=== PATIENT | female | born 1985 | race Caucasian/White ===

== ENCOUNTER 2017-06-27 09:31 | Day surgery (SDC) | payer BC ==
--- NOTE | 2017-06-25 15:38 | HISTORY & PHYSICAL EXAMINATION ---
DATE OF ADMISSION: 06/25/2017 REASON FOR ADMISSION: Missed . HISTORY OF PRESENT ILLNESS: The patient is a 31-year-old female para 1-0-1-1 currently 6 weeks with a missed . The patient had an ultrasound which revealed no heart tones. The patient was given informed consent including the risks, benefits, alternatives of surgery versus expectant management. The patient chose to have surgery. D&E will be scheduled. PAST MEDICAL HISTORY: Positive for asthma. No medications currently. PAST SURGICAL HISTORY: Repair of knee, dental surgery and eardrum surgery. SOCIAL HISTORY: Denies smoking, alcohol or drug use. MEDICATIONS: vitamins. ALLERGIES: No known allergies. FAMILY HISTORY: Noncontributory. REVIEW OF SYSTEMS: Negative. PHYSICAL EXAMINATION: HEENT: Within normal limits. LUNGS: Clear to auscultation. COR: Regular rate and rhythm. ABDOMEN: Soft, nontender, gravid to 6 weeks. VITAL SIGNS: Blood pressure 100/60. Last menstrual period 04/28/2017. The patient is A positive. ASSESSMENT: Missed . PLAN: D&E in the OR.
[2017-06-26 08:01] VITALS: BMI 21.0
[~2017-06-27] VITALS: Ht 165.1 cm; Wt 58.0 kg
--- NOTE | 2017-06-27 09:05 | History & Physical Bridge Note ---
H&P Re-Evaluation Bridge Note: I have examined the patient, reviewed the History & Physical and in the interval since the performance of the History & Physical I have noted the following changes of clinical significance: No changes noted
[~2017-06-27 09:31] MED LIST: LACTATED RINGER'S 1000ML 1,000 ML IV SCH; PRENTAB26 PO
[2017-06-27 09:56] VITALS: BP 129/71; PULSE 98; TEMP 36.8; O2SAT 99; Ht 165.1 cm; Wt 58.0 kg
[2017-06-27] MEDS ORDERED: SILVER NITR/POTASSIUM NITRATE APPLICATOR ONE (11:00)
[2017-06-27] MEDS ORDERED: MIDAZOLAM HCL 1 MG/ML 2ML VIAL ONE (11:16)
[2017-06-27] MEDS ORDERED: FENTANYL CITRATE INJ 50 MCG/1 ML 2 ML VIAL ONE (11:16)
[2017-06-27] MEDS ORDERED: KETOROLAC TROMETHAMINE 30 MG/ML VIAL IV. PRN ×2 (11:45→12:45)
[2017-06-27] MEDS ORDERED: ONDANSETRON INJ 2 MG/ML 2 ML VIAL IV PRN ×2 (11:45→12:45)
[2017-06-27] MEDS ORDERED: FENTANYL CITRATE INJ 50 MCG/1 ML 2 ML VIAL IV PRN (11:45)
[2017-06-27] MEDS ORDERED: ATROPINE SULFATE 0.1 MG/ML 5ML SYR IV PRN (11:45)
[2017-06-27] MEDS ORDERED: SODIUM CHLORIDE 0.9% 1000ML 1,000 ML IV SCH (12:38)
[2017-06-27] MEDS ORDERED: LIDOCAINE HCL 2% 2 ML VIAL (20MG/ML) ONE (12:41)
[2017-06-27] MEDS ORDERED: MTR600X PO (12:41)
[2017-06-27] MEDS ORDERED: PROPOFOL IV EMULSION 10 MG/ML 20 ML VIAL IV ONE (12:41)
[2017-06-27] MEDS ORDERED: METOCLOPRAMIDE HCL INJ 5 MG/ML 2 ML VIAL ONE (12:41)
[2017-06-27] MEDS ORDERED: ONDANSETRON INJ 2 MG/ML 2 ML VIAL ONE (12:41)
--- NOTE | 2017-06-27 12:41 | [facility] Post Operative Brief Note ---
Immediate Operative Summary Operative Date Jun 27, 2017. Pre-Operative Diagnosis missed Post-Operative Diagnosis same Procedure(s) Performed D&E Surgeon Alysha Military Technician Surgeon(s) none Estimated Blood Loss 5 ml. Findings products of conception Specimens products of conception Drains none Anesthesia MAC Complication(s) None Disposition Recovery Room / PACU
--- NOTE | 2017-06-27 12:43 | Discharge Instructions ---
Discharge Instructions Date of Service Jun 27, 2017. Admission Reason for Admission: Missed Discharge Discharge Diagnosis / Problem: missed 6 weeks Discharge Goals Goal(s): Routine recovery after surgery Activity Recommendations Activity Limitations: as noted below Lifting Limitations: no more than 10 pounds Exercise/Sports Limitations: gradually increase as tolerated May Resume Sexual Activity: after follow-up appointment Shower/Bathe: no limitations Driving or Machine Use: resume 1 day after discharge . Instructions / Follow-Up Instructions / Follow-Up ACTIVITY RECOMMENDATIONS: * Avoid tampons, douching, hot tubs, pools, and intercourse until bleeding has stopped. * May shower as usual. * No strenuous activity for 24-48 hours. After 24-48 hours, you may do anything you feel like doing (driving and sports are okay). SPECIAL CARE INSTRUCTIONS: Special Diet: * Mild nausea may occur in the immediate post-operative period. * Take clear liquids such as tea, cola or bouillon until all nausea has subsided; you may then resume your normal diet. Special Care: * Light bleeding and vaginal spotting can last from a few days to 3-4 weeks. Call your doctor if bleeding becomes heavier than the heaviest part of your period. * Check your temperature twice a day for one week. If it goes above 100.4 degrees Fahrenheit (38.0 Celsius), notify your doctor. * Call your doctor's office for an appointment for 6 weeks after your surgery. FOLLOW-UP VISIT: Call your doctor's office for an appointment for 6 weeks after your surgery. Current Hospital Diet Patient's current hospital diet: Discharge Diet Recommended Diet: Regular Diet Fluid Restriction: None Procedures Procedures Performed: D&E Pending Studies Studies pending at discharge: no Medical Emergencies . Who to Call and When: Medical Emergencies: If at any time you feel your situation is an emergency, please call 911 immediately. . Non-Emergent Contact Non-Emergency issues call your: Primary Care Provider . . "Provider Documentation" section prepared by Tera Encarnacion. . VTE Core Measure Inpt VTE Proph given/why not?: Treatment not indicated
[2017-06-27] MEDS ORDERED: OXYCODONE/ACETAMINOPHEN 5-325 TAB PO PRN (12:45)
[2017-06-27] MEDS ORDERED: IBUPROFEN 600 MG TAB PO PRN (12:45)
[2017-06-27] MEDS ORDERED: MoRPHine SULFATE 2 MG/ML CARP IV PRN (12:45)
--- NOTE | 2017-06-27 13:16 | OPERATIVE REPORT ---
DATE OF OPERATION: 06/27/2017 PREOPERATIVE DIAGNOSIS: Missed at 6 weeks. POSTOPERATIVE DIAGNOSIS: Same. PROCEDURE: D&E. SURGEON: Tera Encarnacion MD. ADULT CROSSING GUARD: None. ANESTHESIA: MAC. ESTIMATED BLOOD LOSS: 5 mL. COMPLICATIONS: None. FINDINGS: Products of conception. The patient is A positive. CLINICAL HISTORY: The patient is a 31-year-old female para 1-0-0-1 at 6 weeks, A positive presents to the office with no heart tones. On ultrasound a missed AB was diagnosed. The patient was consented for a D&E in the OR. DESCRIPTION OF PROCEDURE: After satisfactory MAC anesthesia, the patient was prepped and draped in usual sterile fashion. Catheter was used to empty the bladder approximately 100 mL of clear urine. Exam under anesthesia revealed the uterus to be approximately 6-8 weeks size with no abnormalities. Weighted speculum was then placed in the posterior vault of the vagina. Single tooth tenaculum was then placed on the cervix anteriorly. The cervix was sounded to approximately 7 cm. Hegar dilators were then used to dilate the cervix and then a #8 curved curette was then introduced curetting out products of conception. Sharp endometrial curet was then used curetting minimal amounts of tissue. No active bleeding was noted. At the end of the procedure, Pitocin was started in the IV. The patient was A positive. She did not receive RhoGAM. At the end of the procedure, all remaining instruments were then removed. The patient was then placed supine on a stretcher and then taken to recovery room in stable condition to be discharged as an outpatient. FINAL DISCHARGE DIAGNOSIS: Missed . I attest to the content of the Intraoperative Record and any orders documented therein. Any exception s are noted below.
[2017-06-27 13:30] VITALS: BP 96/59; PULSE 84; TEMP 36.8; O2SAT 100
[2017-06-27 14:00] VITALS: BP 99/57; PULSE 80; TEMP 37; O2SAT 99
--- NOTE | 2017-06-27 14:24 | Anesthesiology Progress Note ---
Anesthesia Post Op Note Date & Time Jun 27, 2017 at 14:23 Vital Signs Pain Intensity: 0.5 Vital Signs Past 12 Hours Date Time Temp Pulse Resp B/P (MAP) Pulse Ox O2 Delivery O2 Flow Rate FiO2 06/27/17 13:30 36.8 84 16 96/59 100 Room Air 06/27/17 13:22 37.1 06/27/17 13:21 73 22 06/27/17 13:21 74 22 98/54 99 06/27/17 13:16 78 19 101/65 100 06/27/17 13:16 79 19 06/27/17 13:15 86 28 06/27/17 13:15 87 28 97 06/27/17 13:11 97/63 06/27/17 13:10 74 15 97 06/27/17 13:10 76 15 06/27/17 13:06 99/57 06/27/17 13:05 80 18 06/27/17 13:05 80 18 100 06/27/17 13:01 90/60 06/27/17 13:00 83 22 100 06/27/17 13:00 83 22 06/27/17 12:56 99/60 06/27/17 12:55 81 23 100 06/27/17 12:55 80 23 06/27/17 12:51 93/59 06/27/17 12:50 77 19 06/27/17 12:50 78 19 100 06/27/17 12:46 99/60 06/27/17 12:45 37.2 91 18 99/60 100 Room Air 06/27/17 12:45 92 21 06/27/17 12:45 92 21 97 06/27/17 09:56 36.8 98 16 129/71 (90) 99 Room Air Notes Mental Status: alert / awake / arousable, participated in evaluation Pt Amnestic to Procedure: Yes Nausea / Vomiting: adequately controlled Pain: adequately controlled Airway Patency, RR, SpO2: stable & adequate BP & HR: stable & adequate Hydration State: stable & adequate Anesthetic Complications: no major complications apparent
[2017-06-27 14:30] VITALS: BP 91/55; PULSE 78; TEMP 36.6; O2SAT 97
== END 2017-06-27 14:52 | disposition home or self-care (01) ==
LOC: C.ACU 09:31
PROVIDERS: ATTEND Obstetrics & Gynecology
DX: O02.1 Missed abortion (principal); J45.909 Unspecified asthma, uncomplicated; Z98.890 Other specified postprocedural states

== ENCOUNTER 2021-04-25 15:32 | Inpatient (IN) ==
[2021-04-25] MEDS ORDERED: LACTATED RINGER'S 1,000 ML IV SCH ×2 (16:15→19:45)
--- NOTE | 2021-04-25 16:27 | History & Physical Bridge Note ---
Date of Service April 25, 2021 History & Physical Bridge Note I have examined the patient, reviewed the History & Physical and in the interval since the performance of the History & Physical I have noted the following changes of clinical significance: no changes noted
[2021-04-25] MEDS ORDERED: ceFAZolin 2000MG 2,000 MG/15 ML SYR IV SCH (16:30)
[2021-04-25] MEDS ORDERED: CITRIC ACID/SODIUM CITRATE 15 ML UDC PO SCH (16:30)
[2021-04-25 16:44] LABS: Basophils # (auto) 0.01 K/uL (0-0.2); Basophils % (auto) 0.1 %; Eosinophils # (auto) 0.05 K/uL (0-0.5); Eosinophils % (auto) 0.5 %; Hematocrit (blood only) 35.9 % (37-47); Hemoglobin 12.4 g/dL (12.0-16.0); Immature Granulocytes # (auto) 0.01 K/uL (0.00-0.02); Immature Granulocytes % (auto) 0.1 %; Lymphocytes % (auto) 14.4 %; Mean Corpuscular Hemoglobin 33.5 pg (25-34); Mean Corpuscular Hgb Conc 34.5 g/dL (32-36); Mean Platelet Volume 10.2 fL (7.4-10.4); Monocytes # (auto) 0.71 K/uL (0.11-0.59); Monocytes % (auto) 7.3 %; Neutrophils # (auto) 7.57 K/uL (1.4-6.5); Neutrophils % (auto) 77.6 %; Platelet Count 127 K/uL (130-400); RDW Coefficient of Variation 12.6 % (11.5-14.5); RDW Standard Deviation 44.4 fL (36.4-46.3); White Blood Count 9.75 K/uL (4.8-10.8)
[2021-04-25] MEDS: LACTATED RINGER'S 1,000 ML IV SCH (17:03)
[2021-04-25] MEDS ORDERED: OXYTOCIN 10 UNITS/ML VIAL ONE ×3 (17:09→18:44)
[2021-04-25] MEDS ORDERED: MoRPHine SULFATE PF 1 MG/ML 10 ML AMP/VIAL ONE (17:09)
[2021-04-25] MEDS ORDERED: fentaNYL citrate 100 MCG/2 ML VIAL ONE (17:09)
--- NOTE | 2021-04-25 17:37 | Anesthesiology Consultation ---
Date of Service April 25, 2021 Assessment & Plan Chart Review Chart Review: Acceptable Risk for Surgery and Patient NOT seen in Pre Admission Testing Consults Requested none ASA ASA2 Proposed Anesthesia Anesthesia Type: MAC Spinal Risk / Benefits Reviewed With: PT / POA / Parent / Guardian, Accepts Plan and Informed Consent Obtained History Height/Weight Height: 5 ft 5 in Weight: 65.41 kg Allergies Allergy/AdvReac Type Severity Reaction Status Date / Time No Known Allergies Allergy Unverified 04/22/21 08:17 Medications Home Medications Medication Instructions Recorded Confirmed Last Taken owdremcr-[id number]-Ty-[id number] 1 mg 1 tab PO QAM 04/22/21 04/25/21 04/25/21 08:00 tablet Active Medications Generic Name Dose Route Start Last Admin Trade Name Freq PRN Reason Stop Dose Admin Lactated Ringer's 1,000 mls @ 125 mls/hr 04/25/21 17:15 04/25/21 17:03 Lr IV 05/25/21 17:14 125 mls/hr .Q8H SLICK Administration NPO Date Last Intake of Fluids: 04/25/21 Time Last Intake of Fluids: 12:00 Date Last Intake of Solids: 04/25/21 Time Last Intake of Solids: 11:30 Last Intake of Solids Comment: sandwich Past Medical History Medical History Gestational diabetes Exercise / Class Metabolic Activity II 4-5 Yardwork/Stairs/Walk up hill Past Surgical History Surgical History Hx of section Hx of dilation and curettage Hx of wisdom tooth extraction S/P ACL repair right knee Past Anesthesia History No Hx of Anesthesia Complications and No Family Hx of Anesthesia Complications History of PONV No Hx of PONV and No Hx of Motion Sickness Social History Smoking Status: Never smoker Hx Alcohol Use: No Hx Substance Use: No substance use type: does not use Review of Systems no chest pain or sob Physical Exam Vital Signs Last Vital Signs Temp 36.9 C 04/25/21 15:53 Pulse 88 04/25/21 15:52 Resp 19 04/25/21 15:53 BP 112/77 04/25/21 15:52 ENMT Mouth: no TMJ abnormality Thyromental Distance: > or= 3.5 Finger Breadths Mallampati Class: II Neck normal visual inspection Respiratory normal respiratory effort Auscultation: lungs clear to auscultation bilaterally Cardiovascular Rate/Rhythm: regular rate and regular rhythm Musculoskeletal Spine: normal cervical ROM Neurologic moves all extremities Psychiatric Orientation: alert and oriented x 3 Testing Laboratory Results 04/25/21 16:30 Blood Type A Positive 04/25/21 16:30 Antibody Screen NEGATIVE 04/25/21 16:30 04/25/21 16:34 POC Glucose 76
[2021-04-25] MEDS ORDERED: LACTATED RINGER'S 500 ML IV PRN (17:38)
[2021-04-25] MEDS ORDERED: ONDANSETRON INJ 2 MG/ML 2 ML VIAL IV PRN ×2 (17:38→19:42)
[2021-04-25] MEDS ORDERED: NALOXONE HCL 0.4 MG/1 ML VIAL/CARP IV PRN (17:38)
[2021-04-25] MEDS ORDERED: HYDROmorphone INJ 0.5 MG/0.5 ML SYR IV PRN (17:38)
[2021-04-25] MEDS ORDERED: NALOXONE HCL 0.08 MG in SYRINGE 1.8 ML IV PRN (17:38)
[2021-04-25] MEDS ORDERED: diphenhydrAMINE 50 MG/ML VIAL IV PRN (17:38)
[2021-04-25] MEDS ORDERED: MoRPHine SULFATE PF 1 MG/ML 10 ML AMP/VIAL INT SPINAL ONE (17:38)
[2021-04-25] MEDS ORDERED: NALOXONE HCL 1 MG in SODIUM CHLORIDE 0.9% 1000ML 1,000 ML IV PRN (17:38)
[2021-04-25] MEDS ORDERED: ePHEDrine sulfate 50 MG/ML AMP IV PRN (17:38)
[2021-04-25] MEDS ORDERED: NALBUPHINE HCL INJ 10 MG/ML AMP IV PRN (17:38)
[2021-04-25] MEDS ORDERED: SODIUM CHLORIDE 0.9% 1000ML 1,000 ML IV SCH (17:45)
[2021-04-25] MEDS ORDERED: DC INTRASPINAL MORPHINE SCH (17:45)
[2021-04-25] MEDS ORDERED: NO NARCOTICS OR SEDATIVES SCH (17:45)
[2021-04-25] MEDS ORDERED: PHENYLEPHRINE 100MCG/ML 5ML SYR ONE (17:54)
[2021-04-25] MEDS ORDERED: OXYTOCIN 10 UNITS/ML VIAL IM ONE (18:48)
[2021-04-25] MEDS ORDERED: miSOPROStoL 200 MCG TAB ONE (18:56)
[2021-04-25] MEDS ORDERED: ONDANSETRON INJ 2 MG/ML 2 ML VIAL ONE (18:58)
[2021-04-25] MEDS ORDERED: miSOPROStoL 200 MCG TAB PR ONE (18:58)
--- NOTE | 2021-04-25 19:23 | Anesthesiology Progress Note ---
Date of Service April 25, 2021 Anesthesia Post Procedure Vital Signs Vital Signs: Temp Pulse Resp BP Pulse Ox 04/25/21 19:20 68 115/70 04/25/21 19:18 66 93 04/25/21 19:13 63 100 04/25/21 19:08 67 109/71 98 04/25/21 15:53 36.9 C 19 04/25/21 15:52 88 112/77 04/25/21 15:49 36.9 C 19 Transfer of Care Handoff Completed per policy Notes Mental Status: alert / awake / arousable Patient Amnestic to Procedure: Yes Nausea / Vomiting: adequately controlled Pain: adequately controlled Airway Patency, RR, SpO2: stable & adequate BP & HR: stable & adequate Hydration State: stable & adequate Neuraxial Anesthesia: was administered and sensory block is resolving Anesthetic Complications: no major complications apparent and Pt Satisfied with anesthetic care
[2021-04-25] MEDS ORDERED: BENZOCAINE 20% AER SPR 82.5 GM CAN EXT PRN (19:42)
[2021-04-25] MEDS ORDERED: MAGNESIUM HYDROXIDE SUSP 30 ML UDC PO PRN (19:42)
[2021-04-25] MEDS ORDERED: PROMETHAZINE HCL 25 MG in SODIUM CHLORIDE 0.9% 50 ML IV PRN (19:42)
[2021-04-25] MEDS ORDERED: SUPERCREAM 0.870% 15 GM JAR EXT PRN (19:42)
[2021-04-25] MEDS ORDERED: DIPHTHERIA/TETANUS/PERTUSSIS 0.5 ML SYR/VIAL IM ONE (19:42)
[2021-04-25] MEDS ORDERED: SENNA 8.6 MG TAB PO PRN (19:42)
[2021-04-25] MEDS ORDERED: HYDROCORTISONE ACETATE 25 MG SUPP PR PRN (19:42)
--- NOTE | 2021-04-25 19:42 | Post Operative Brief Note ---
Immediate Post Op Note v1 Date of Surgery April 25, 2021 Pre & Post Diagnosis Operation Date: 04/25/21 17:30 Pre-Op Diagnosis: Repeat section, desires tubal ligation. Post-Op Diagnosis: Repeat section, desires tubal ligation. I identified the patient and participated in the time-out.: Yes Procedure Operation Date: 04/25/21 17:30 Actual Procedures p Section in LD(Bilateral) - Marvel Santiago MD Surgeon Marvel Santiago MD Oil Pumper dr castrejon Estimated Blood Loss 450 Findings Consistent with Post-Op Diagnosis
[2021-04-25] MEDS ORDERED: OXYTOCIN 20 UNITS in LACTATED RINGER'S 1,000 ML IV SCH (20:45)
--- NOTE | 2021-04-25 22:20 | Operative Report (OR) ---
DATE OF PROCEDURE: 04/25/2021. INDICATIONS FOR SURGERY: This is a 35-year-old G5, P2, prior section, at term, wis hes to have repeat and permanent sterilization. PREOPERATIVE DIAGNOSES: 1. at term, previous section, wishes to have repeat . 2. Undesired fertility, wishes to have permanent sterilization. POSTOPERATIVE DIAGNOSES: 1. at term, previous section, wishes to have repeat . 2. Undesired fertility, wishes to have permanent sterilization. PROCEDURE: Repeat section and bilateral tubal ligation. SURGEON: Marvel Santiago MD SAP INTEGRATION ARCHITECT: Tera Encarnacion MD ANESTHESIA: Spinal. ATTENDING FOR ANESTHESIA: Dr. Bates. ESTIMATED BLOOD LOSS: 450 mL. INTRAVENOUS FLUIDS: 2 liters. URINE OUTPUT: 500 mL of clear urine at the end of the procedure. FINDINGS: Normal uterus, tubes, and adnexa. Abdominopelvic exam is unremarkable. Live infant delive red via section. COMPLICATIONS: None. DRAIN: Kelley catheter. PATHOLOGY: Placenta. INTRAOPERATIVE COMPLICATIONS: None. DESCRIPTION OF PROCEDURE: The patient was taken to the Operating Room where she was prepped and drap ed in normal sterile fashion in dorsal lithotomy position. Timeout was called. A Pfannenstiel incis ion was made through the old scar and carried down to the fascia. Fascia was incised in the midline and extended laterally on both sides. Rectus abdominis muscle was sharply dissected off the fascia. Peritoneum was identified and abdomen was entered sharply. Once inside the abdomen, an Ryan retra ctor was placed for retraction. Vesicouterine peritoneum was sharply dissected over the lower segmen t of the uterus. A transverse incision was made on the lower segment of the uterus and extended late rally on both sides using bandage scissors. Amniotomy was performed. The infant was delivered, mout h was suctioned, cord was clamped and cut and handed over to the pediatric team. Details of the infa nt's information is in the pediatric record. Cord blood was obtained. Placenta was manually removed . Uterus was exteriorized and cleared of all clots and debris. Uterus was closed in 2 layers using Vicryl stitch. There was good hemostasis. Copious amount of irrigation was used to irrigate the abd omen. Uterus was returned to the abdominal cavity once good hemostasis was confirmed. The fascia wa s closed in a running fashion using Vicryl stitch. Copious amount of irrigation was used to irrigate the abdomen. Subcutaneous space was closed with plain suture. Skin was closed with 4-0 Monocryl. All instruments were removed from the abdomen including retractors, needles, and sponges and accounte d for x2. The patient was sent to recovery in stable condition. Job ID: [id number]
[2021-04-26] MEDS: KETOROLAC 30 MG/ML VIAL IV PRN ×2 (00:57→10:47)
[2021-04-26] MEDS: SIMETHICONE 80 MG CHEW PO SCH ×5 (03:24→20:33)
[2021-04-26] MEDS: DOCUSATE SODIUM 100 MG CAP PO SCH ×3 (03:24→20:34)
[2021-04-26] MEDS: LACTATED RINGER'S 1,000 ML IV SCH (04:45)
[2021-04-26 06:46] LABS: Basophils # (auto) 0.01 K/uL (0-0.2); Basophils % (auto) 0.1 %; Eosinophils # (auto) 0.04 K/uL (0-0.5); Eosinophils % (auto) 0.3 %; Hematocrit (blood only) 34.4 % (37-47); Hemoglobin 11.9 g/dL (12.0-16.0); Immature Granulocytes # (auto) 0.02 K/uL (0.00-0.02); Immature Granulocytes % (auto) 0.1 %; Lymphocytes # (auto) 1.38 K/uL (1.2-3.4); Lymphocytes % (auto) 9.8 %; Mean Corpuscular Hemoglobin 32.8 pg (25-34); Mean Corpuscular Hgb Conc 34.6 g/dL (32-36); Mean Corpuscular Volume 94.8 fL (80-100); Mean Platelet Volume 9.9 fL (7.4-10.4); Monocytes # (auto) 1.12 K/uL (0.11-0.59); Neutrophils # (auto) 11.46 K/uL (1.4-6.5); Neutrophils % (auto) 81.7 %; Platelet Count 109 K/uL (130-400); RDW Coefficient of Variation 12.4 % (11.5-14.5); RDW Standard Deviation 42.6 fL (36.4-46.3); Red Blood Count 3.63 M/uL (4.2-5.4); White Blood Count 14.03 K/uL (4.8-10.8)
[2021-04-26] MEDS: PRENATAL VITAMIN 1 TAB PO SCH (07:49)
[2021-04-26] MEDS: FERROUS SULFATE 325 MG TAB PO SCH (07:49)
--- NOTE | 2021-04-26 09:13 | Obstetrical Progress Note ---
Date of Service April 26, 2021 Physical Exam Constitutional WD/WN, vitals as above comfortable Skin incision c/d/i abdomen slightly distended fundus firm no edema neg Tati's will increase diet/activity Results & Data ([facility]) Vital Signs (Past 12 Hours) Vital Signs Temp Pulse Pulse Pulse Resp BP Pulse Ox 04/26/21 07:40 36.7 C 77 21 103/67 99 04/26/21 06:01 18 95 04/26/21 05:00 18 96 04/26/21 04:04 36.4 C L 84 18 111/66 98 04/26/21 03:00 18 97 04/26/21 02:00 16 97 04/26/21 01:00 20 99 04/26/21 00:00 18 97 04/25/21 23:00 20 97 04/25/21 22:30 18 116/64 97 04/25/21 22:00 18 97 04/25/21 21:30 36.5 C 65 18 117/76 99 04/25/21 21:23 74 95 04/25/21 21:22 68 87 L 04/25/21 21:18 69 96 04/25/21 21:13 78 99 Laboratory Results Laboratory Results - last 72 hr 04/25/21 04/25/21 04/25/21 16:30 16:30 16:34 WBC 9.75 RBC 3.70 L Hgb 12.4 Hct 35.9 L MCV 97.0 MCH 33.5 MCHC 34.5 RDW Std Deviation 44.4 RDW Coeff of Boby 12.6 Plt Count 127 L MPV 10.2 Immature Gran % (Auto) 0.1 Neut % (Auto) 77.6 Lymph % (Auto) 14.4 [place] % (Auto) 7.3 Eos % (Auto) 0.5 Baso % (Auto) 0.1 Neut # (Auto) 7.57 H Lymph # (Auto) 1.40 [place] # (Auto) 0.71 H Eos # (Auto) 0.05 Baso # (Auto) 0.01 Immature Gran # (Auto) 0.01 POC Glucose 76 Blood Type A Positive Antibody Screen NEGATIVE 04/26/21 06:28 WBC 14.03 H RBC 3.63 L Hgb 11.9 L Hct 34.4 L MCV 94.8 MCH 32.8 MCHC 34.6 RDW Std Deviation 42.6 RDW Coeff of Boby 12.4 Plt Count 109 L MPV 9.9 Immature Gran % (Auto) 0.1 Neut % (Auto) 81.7 Lymph % (Auto) 9.8 [place] % (Auto) 8.0 Eos % (Auto) 0.3 Baso % (Auto) 0.1 Neut # (Auto) 11.46 H Lymph # (Auto) 1.38 [place] # (Auto) 1.12 H Eos # (Auto) 0.04 Baso # (Auto) 0.01 Immature Gran # (Auto) 0.02 POC Glucose Blood Type Antibody Screen
[2021-04-26] MEDS ORDERED: diphenhydrAMINE 50 MG/ML VIAL IV PRN (11:38)
[2021-04-26] MEDS ORDERED: diphenhydrAMINE Capsule 25 MG CAP PO PRN (11:38)
[2021-04-26] MEDS: oxyCODONE/ACETAMINOPHEN 5mg/325mg TAB PO PRN ×2 (16:37→20:34)
[2021-04-26] MEDS: IBUPROFEN 600 MG TAB PO PRN ×2 (16:37→20:34)
[2021-04-26] MEDS ORDERED: bisacodyL 5 MG TABEC PO SCH (20:00)
[2021-04-26] MEDS ORDERED: ZOLPIDEM TARTRATE 5 MG TAB PO PRN (21:00)
[2021-04-27] MEDS: IBUPROFEN 600 MG TAB PO PRN ×2 (05:51→11:25)
[2021-04-27] MEDS: oxyCODONE/ACETAMINOPHEN 5mg/325mg TAB PO PRN ×2 (05:52→11:25)
[2021-04-27 06:39] LABS: Hematocrit (blood only) 31.4 % (37-47); Hemoglobin 10.6 g/dL (12.0-16.0)
[2021-04-27] MEDS: DOCUSATE SODIUM 100 MG CAP PO SCH (07:52)
[2021-04-27] MEDS: PRENATAL VITAMIN 1 TAB PO SCH (07:52)
[2021-04-27] MEDS: FERROUS SULFATE 325 MG TAB PO SCH (07:52)
[2021-04-27] MEDS: SIMETHICONE 80 MG CHEW PO SCH ×3 (07:52→16:59)
--- NOTE | 2021-04-27 08:24 | Obstetrical Progress Note ---
Date of Service April 27, 2021 Assessment & Plan Admission and Anticipated Discharge Date Admission Date: April 25, 2021 Subjective Patient is seen and examined. She feels well, no complaints. Desires d/c Pain is under control with oral meds. Ambulating without dizziness Voiding without difficulty Tolerating regular diet with out N&V Flatus + BM neg Bleeding is minimal No fever/ chills/ CP/ SOB/ N&V/ Leg pain Breast feeding without problems Vital Signs Temp Pulse Resp BP Pulse Ox 04/26/21 23:10 36.9 C 84 16 95/53 L 97 04/26/21 19:25 36.9 C 98 H 18 115/70 97 04/26/21 16:30 37.0 C 87 21 116/73 04/26/21 12:05 36.7 C 21 96/57 L 04/26/21 10:45 20 99 04/26/21 10:00 20 99 04/26/21 09:00 19 100 Lab Results 04/25/21 04/25/21 04/25/21 Range/Units 16:30 16:30 16:34 WBC 9.75 (4.8-10.8) K/uL RBC 3.70 L (4.2-5.4) M/uL Hgb 12.4 (12.0-16.0) g/dL Hct 35.9 L (37-47) % MCV 97.0 (80-100) fL MCH 33.5 (25-34) pg MCHC 34.5 (32-36) g/dL RDW Std Deviation 44.4 (36.4-46.3) fL RDW Coeff of Boby 12.6 (11.5-14.5) % Plt Count 127 L (130-400) K/uL MPV 10.2 (7.4-10.4) fL Immature Gran % (Auto) 0.1 % Neut % (Auto) 77.6 % Lymph % (Auto) 14.4 % [place] % (Auto) 7.3 % Eos % (Auto) 0.5 % Baso % (Auto) 0.1 % Neut # (Auto) 7.57 H (1.4-6.5) K/uL Lymph # (Auto) 1.40 (1.2-3.4) K/uL [place] # (Auto) 0.71 H (0.11-0.59) K/uL Eos # (Auto) 0.05 (0-0.5) K/uL Baso # (Auto) 0.01 (0-0.2) K/uL Immature Gran # (Auto) 0.01 (0.00-0.02) K/uL POC Glucose 76 (70-99) mg/dl Blood Type A Positive Antibody Screen NEGATIVE 04/26/21 04/27/21 Range/Units 06:28 06:23 WBC 14.03 H (4.8-10.8) K/uL RBC 3.63 L (4.2-5.4) M/uL Hgb 11.9 L 10.6 L (12.0-16.0) g/dL Hct 34.4 L 31.4 L (37-47) % MCV 94.8 (80-100) fL MCH 32.8 (25-34) pg MCHC 34.6 (32-36) g/dL RDW Std Deviation 42.6 (36.4-46.3) fL RDW Coeff of Boby 12.4 (11.5-14.5) % Plt Count 109 L (130-400) K/uL MPV 9.9 (7.4-10.4) fL Immature Gran % (Auto) 0.1 % Neut % (Auto) 81.7 % Lymph % (Auto) 9.8 % [place] % (Auto) 8.0 % Eos % (Auto) 0.3 % Baso % (Auto) 0.1 % Neut # (Auto) 11.46 H (1.4-6.5) K/uL Lymph # (Auto) 1.38 (1.2-3.4) K/uL [place] # (Auto) 1.12 H (0.11-0.59) K/uL Eos # (Auto) 0.04 (0-0.5) K/uL Baso # (Auto) 0.01 (0-0.2) K/uL Immature Gran # (Auto) 0.02 (0.00-0.02) K/uL POC Glucose (70-99) mg/dl Blood Type Antibody Screen PE: General: Alert, orientedx3, NAD CVS: S1S2 RRR Lungs; CTAB Abd: soft, NT, ND, BS+, fundus firm, below Umbilicus Incision: Clean, dry, intact Perineum intact, Lochia rubra minimal Ext; NT, no edema AP: 35 yo s/p C Section, pod# 2 VSS Afebrile doing well Continue routine postop care Encourage ambulation, PO intake All questions were answered Discussed when to call D/C home after dinner Results & Data ([facility]) Vital Signs (Past 12 Hours) Vital Signs Temp Pulse Resp BP Pulse Ox 04/26/21 23:10 36.9 C 84 16 95/53 L 97
[2021-04-27] MEDS ORDERED: bisacodyL 10 MG SUPP PR PRN (19:42)
--- NOTE | 2021-05-10 12:31 | Discharge Summary (DS) ---
DATE OF ADMISSION: 04/25/2021 DATE OF DISCHARGE: 04/27/2021 HISTORY OF PRESENT ILLNESS: This is a 35-year-old , due date 04/29/2021, who presented to labor and delivery on 04/25/2021 for section. The patient had a prior in the past and wished to have a repeat . The patient underwent section with tubal ligation. Samantha sheldon of surgery is in the surgical note. Surgery was otherwise unremarkable. The patient was dis[facility] in stable condition on 04/27/2021. PAST MEDICAL HISTORY: History of asthma and gestational diabetes in previous . PAST SURGICAL HISTORY: History of dental surgery, section, and ear surgery. SOCIAL HISTORY: The patient denies tobacco, drug or alcohol use. FAMILY HISTORY: Noncontributory. ALLERGIES: No known drug allergies. REVIEW OF SYSTEMS: Negative except as dictated in the HPI. PHYSICAL EXAMINATION: VITAL SIGNS: On 04/27/2021 showed blood pressure of 104/59, pulse of 103, respirations 18, temperatu re 36.7. HEART: S1 and S2, regular rhythm and rate. LUNGS: Clear to auscultation bilaterally. ABDOMEN: Nontender, nondistended, positive bowel sounds. Incision clean, dry and intact. EXTREMITIES: No cyanosis, clubbing or edema. LABORATORY DATA: On 04/27/2021 showed hemoglobin of 10.6, hematocrit of 31.4. CONDITION ON DISCHARGE: Stable. OPERATIONS: Repeat section with tubal ligation. DISCHARGE DIAGNOSES: Postoperative after section and tubal ligation. PLAN ON DISCHARGE: The patient is discharged home with instructions regarding activity, diet, and fo [facility] appointment. Job ID: [id number]
== END 2021-04-27 18:05 | disposition home or self-care (01) | DRG 785 ==
LOC: OPB 15:32 → 4S1 15:34 → 4S2 21:39